=== PATIENT | male | born 1965 | race Caucasian/White ===

== ENCOUNTER 2016-11-20 17:53 | Inpatient (IN) | payer BC ==
[~2016-11-20] VITALS: Ht 177.8 cm; Wt 85.5 kg
[2016-11-20] MEDS ORDERED: SODIUM CHLORIDE 0.9% 1000ML 2,000 ML IV STA (18:13)
[2016-11-20] MEDS ORDERED: ONDANSETRON INJ 2 MG/ML 2 ML VIAL IV STA (18:13)
--- NOTE | 2016-11-20 18:40 | DIAGNOSTIC IMAGING REPORT ---
CHEST ONE VIEW PORTABLE CLINICAL HISTORY: Weakness. Arm numbness. COMPARISON STUDY: No previous studies for comparison. FINDINGS: Patient is mildly rotated. No pneumothorax or pleural effusion is present. Pulmonary vascularity is normal. Cardiomediastinal silhouette is normal. There is no consolidation to suggest pneumonia. IMPRESSION: No acute cardiopulmonary findings. Electronically signed by: Varun Aguilar M.D. 11/20/2016 6:39 PM Dictated Date/Time: 11/20/2016 6:38 PM
[2016-11-20 18:41] LABS: PARTIAL THROMBOPLASTIN RATIO 1.1; PROTHROMBIN TIME (PATIENT) 10.6 SECONDS (9.0-12.0)
[2016-11-20] MEDS ORDERED: COLE1TAB PO (18:47)
[2016-11-20] MEDS ORDERED: IBUP-1050 PO (18:47)
[2016-11-20] MEDS ORDERED: DOXYCYCLINE PO (18:47)
[2016-11-20] MEDS ORDERED: ASPI-391 PO (18:47)
[2016-11-20 19:25] LABS: BASO % 0.2 %; BASO ABS # 0.02 K/uL (0-0.2); COMPLETE YES; EOS % 0.7 %; IG% 0.1 %; LYMPH % 15.5 %; MEAN CELL VOLUME 87.5 fL (80-100); MEAN CORPUSCULAR HEMOGLOBIN 30.3 pg (25-34); MEAN CORPUSCULAR HGB CONC 34.6 g/dl (32-36); MEAN PLATELET VOLUME 8.1 fL (7.4-10.4); MONO % 8.5 %; PLATELET COUNT 249 K/uL (130-400); RED BLOOD COUNT 4.23 M/uL (4.7-6.1)
[2016-11-20 19:33] LABS: URINE APPEARANCE CLEAR (CLEAR); URINE BILIRUBIN NEG (NEG); URINE COLOR YELLOW; URINE NITRITE NEG (NEG); URINE PH 6.5 (4.5-7.5); URINE SPECIFIC GRAVITY 1.022 (1.000-1.030); UROBILINOGEN NEG (NEG)
[2016-11-20 19:38] LABS: MANUAL MICROSCOPIC REQUIRED? NO; REVIEW REQ? NO
[2016-11-20 19:44] LABS: ALT/SGPT 72 U/L (12-78); BLOOD UREA NITROGEN 21 mg/dl (7-18); BUN/CREATININE RATIO 20.9 (10-20); CALCIUM 8.3 mg/dl (8.5-10.1); CARBON DIOXIDE 26 mmol/L (21-32); CHLORIDE 107 mmol/L (98-107); GLUCOSE 91 mg/dl (70-99); POTASSIUM 3.8 mmol/L (3.5-5.1); SODIUM 139 mmol/L (136-145)
[2016-11-20 19:55] LABS: ALKALINE PHOSPHATASE 86 U/L (45-117); AST/SGOT 36 U/L (15-37); THYROID STIMULATING HORMONE 0.632 uIu/ml (0.300-4.500)
[2016-11-20] MEDS ORDERED: OPTIRAY 320 IV PRN (21:30)
--- NOTE | 2016-11-20 21:54 | DIAGNOSTIC IMAGING REPORT ---
CT ANGIOGRAPHY OF THE CHEST, PULMONARY EMBOLUS PROTOCOL CLINICAL HISTORY: Shortness of breath. Elevated d-dimer. COMPARISON STUDY: Chest radiograph performed earlier today. TECHNIQUE: Following IV administration of 74 mL of Optiray-320, helical axial images of the chest were obtained utilizing the pulmonary embolus protocol. Maximal intensity projections and sagittal and coronal reformats were viewed on an independent 3D workstation. IV contrast was administered without complication. A dose lowering technique was utilized adhering to the principles of ALARA. CT DOSE: 362.46 mGy.cm FINDINGS: No pulmonary emboli are identified. There is no evidence of thoracic aortic dissection. The size of the heart is normal. There is no pericardial effusion. No enlarged axillary, mediastinal or hilar lymph nodes are present. Groundglass and linear opacities suggest atelectasis. There is no consolidation to suggest pneumonia. No pneumothorax or pleural effusion is present. Bony thorax is unremarkable. Gallbladder is surgically absent. Multifocal calcifications within the left adrenal gland are noted. This finding is benign. A 1 cm hypodense right hepatic lobe lesion is likely benign. This likely reflects a cyst. IMPRESSION: 1. No pulmonary emboli identified. 2. No acute intrathoracic findings. Electronically signed by: Varun Aguilar M.D. 11/20/2016 9:53 PM Dictated Date/Time: 11/20/2016 9:44 PM
[2016-11-20] MEDS ORDERED: CEFTRIAXONE SOD INJ 1 GM ADDVIAL IV STA (22:03)
[2016-11-20] MEDS ORDERED: POTASSIUM CHLORIDE 10 MEQ TABCR PO STA (23:24)
[2016-11-20] MEDS ORDERED: POTASSIUM CHLORIDE 10 MEQ TABCR ONE (23:33)
--- NOTE | 2016-11-20 23:37 | EMERGENCY ROOM VISIT NOTE ---
History Report prepared by Jhon: Richard Carver Under the Supervision of: Dr. Timbo Mariscal D.O. First contact with patient: 17:54 Stated Complaint: WEAKNESS/ARM NUMBNESS History of Present Illness The patient is a 51 year old male who presents to the Emergency Room with complaints of constant generalized weakness occurring about an hour and a half ago while moving his son in associated with shortness of breath and feeling like he is going to pass out. He additionally states that he has been having shortness of breath that started an hour and a half ago and tingling in his arms. 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 He states that he originally had a 3rd degree heart block, and he as discharged with a first degree AV block. He notes that the symptoms feel exactly the same. He additionally states that he had a temporary pacer, though it was taken out. He additionally states that he has a history of Crohn's and an issue with an ileocecal junction. He states that he is currently on doxycycline. He denies any history of heart disease, hypertension, high cholesterol, and diabetes. Pt denies headache, change in vision, fevers, chest pain, nausea, vomiting, diarrhea, pain with urination, and melena. Source of History: patient Onset: an hour and a half ago Position: other (global) Quality: other (weakness) Timing: constant Associated Symptoms: + SOB Note: Associated symptoms: arm tingling Review of Systems See HPI for pertinent positives & negatives. A total of 10 systems reviewed and were otherwise negative. Past Medical & Surgical Medical Problems: (1) Acute Lyme disease (2) AVB (atrioventricular block) (3) Lyme carditis Social History Marital Status: Housing Status: lives with family Occupation Status: unemployed Current/Historical Medications Scheduled Wytwbql-Pcjyztvrltefv-Eqwqkyrx (Excedrin Extra Strength), 2 TABS PO PRN UD Colestipol Hcl (Colestid), 3 TABS PO QAM [Doxycycline], 1 TABS PO BID Scheduled PRN Ibuprofen (Advil), 400 MG PO Q6 PRN for Pain Allergies Coded Allergies: Amoxicillin (Verified Allergy, Unknown, redness of skin, 11/20/16) Physical Exam Vital Signs Date Time Temp Pulse Resp B/P (MAP) Pulse Ox O2 Delivery O2 Flow Rate FiO2 11/20/16 23:20 75 18 145/91 97 Room Air 11/20/16 21:50 76 20 134/86 99 Room Air 11/20/16 20:26 80 18 128/72 99 Room Air 11/20/16 19:25 78 20 133/84 98 Room Air 11/20/16 18:32 88 146/88 11/20/16 18:27 80 17 128/78 82 136/87 88 146/88 11/20/16 18:09 99 Room Air 11/20/16 18:04 77 11/20/16 17:59 36.4 82 17 138/86 100 Room Air Physical Exam GENERAL: Sitting up in bed, disheveled, no acute distress, non-toxic. EYE EXAM: normal conjunctiva, PERRL and EOM's intact OROPHARYNX: no exudate, no erythema, lips, buccal mucosa, and tongue normal and mucous membranes are moist NECK: supple, no nuchal rigidity, no adenopathy, non-tender LUNGS: Clear to auscultation. Normal chest wall mechanics HEART: no murmurs, S1 normal and S2 normal CHEST: Scant below right subclavian along the right chest wall. ABDOMEN: abdomen soft, non-tender, normo-active bowel sounds, no masses, no rebound or guarding. BACK: Back is symmetrical on inspection and there is no deformity, no midline tenderness, no CVA tenderness. SKIN: no rashes and no bruising UPPER EXTREMITIES: upper extremities are grossly normal. LOWER EXTREMITIES: No pitting edema. NEURO EXAM: Normal sensorium, cranial nerves II-XII intact, normal speech, no weakness of arms, no weakness of legs. No drift. Finger to nose intact. Sensation intact. CHEST ECHO: Faint pericardial effusion. Collapsible IVC with inspiration. Medical Decision & Procedures ER Provider Diagnostic Interpretation: Radiology results as stated below per my review and the radiologist's interpretation: CHEST ONE VIEW PORTABLE CLINICAL HISTORY: Weakness. Arm numbness. COMPARISON STUDY: No previous studies for comparison. FINDINGS: Patient is mildly rotated. No pneumothorax or pleural effusion is present. Pulmonary vascularity is normal. Cardiomediastinal silhouette is normal. There is no consolidation to suggest pneumonia. IMPRESSION: No acute cardiopulmonary findings. Electronically signed by: Varun Aguilar M.D. 11/20/2016 6:39 PM Dictated Date/Time: 11/20/2016 6:[address] ANGIOGRAPHY OF THE CHEST, PULMONARY EMBOLUS PROTOCOL CLINICAL HISTORY: Shortness of breath. Elevated d-dimer. COMPARISON STUDY: Chest radiograph performed earlier today. TECHNIQUE: Following IV administration of 74 mL of Optiray-320, helical axial images of the chest were obtained utilizing the pulmonary embolus protocol. Maximal intensity projections and sagittal and coronal reformats were viewed on an independent 3D workstation. IV contrast was administered without complication. A dose lowering technique was utilized adhering to the principles of ALARA. CT DOSE: 362.46 mGy.cm FINDINGS: No pulmonary emboli are identified. There is no evidence of thoracic aortic dissection. The size of the heart is normal. There is no pericardial effusion. No enlarged axillary, mediastinal or hilar lymph nodes are present. Groundglass and linear opacities suggest atelectasis. There is no consolidation to suggest pneumonia. No pneumothorax or pleural effusion is present. Bony thorax is unremarkable. Gallbladder is surgically absent. Multifocal calcifications within the left adrenal gland are noted. This finding is benign. A 1 cm hypodense right hepatic lobe lesion is likely benign. This likely reflects a cyst. IMPRESSION: 1. No pulmonary emboli identified. 2. No acute intrathoracic findings. Electronically signed by: Varun Aguilar M.D. 11/20/2016 9:53 PM Dictated Date/Time: 11/20/2016 9:44 PM Laboratory Results 11/20/16 19:09 Red Blood Count 4.23, Mean Corpuscular Volume 87.5, Mean Corpuscular Hemoglobin 30.3, Mean Corpuscular Hemoglobin Concent 34.6, Mean Platelet Volume 8.1, Neutrophils (%) (Auto) 75.0, Lymphocytes (%) (Auto) 15.5, Monocytes (%) (Auto) 8.5, Eosinophils (%) (Auto) 0.7, Basophils (%) (Auto) 0.2, Neutrophils # (Auto) 6.30, Lymphocytes # (Auto) 1.30, Monocytes # (Auto) 0.71, Eosinophils # (Auto) 0.06, Basophils # (Auto) 0.02 11/20/16 19:09 Test 11/20/16 18:14 11/20/16 18:18 11/20/16 19:09 11/20/16 19:18 Bedside Glucose 79 mg/dl (70-99) Prothrombin Time 10.6 SECONDS (9.0-12.0) Prothromb Time International Ratio 1.0 (0.9-1.1) Activated Partial Thromboplast Time 27.8 SECONDS (21.0-31.0) Partial Thromboplastin Ratio 1.1 White Blood Count 8.40 K/uL (4.8-10.8) Red Blood Count 4.23 M/uL (4.7-6.1) Hemoglobin 12.8 g/dL (14.0-18.0) Hematocrit 37.0 % (42-52) Mean Corpuscular Volume 87.5 fL (80-100) Mean Corpuscular Hemoglobin 30.3 pg (25-34) Mean Corpuscular Hemoglobin Concent 34.6 g/dl (32-36) Platelet Count 249 K/uL (130-400) Mean Platelet Volume 8.1 fL (7.4-10.4) Neutrophils (%) (Auto) 75.0 % Lymphocytes (%) (Auto) 15.5 % Monocytes (%) (Auto) 8.5 % Eosinophils (%) (Auto) 0.7 % Basophils (%) (Auto) 0.2 % Neutrophils # (Auto) 6.30 K/uL (1.4-6.5) Lymphocytes # (Auto) 1.30 K/uL (1.2-3.4) Monocytes # (Auto) 0.71 K/uL (0.11-0.59) Eosinophils # (Auto) 0.06 K/uL (0-0.5) Basophils # (Auto) 0.02 K/uL (0-0.2) RDW Standard Deviation 42.1 fL (36.4-46.3) RDW Coefficient of Variation 13.1 % (11.5-14.5) Immature Granulocyte % (Auto) 0.1 % Immature Granulocyte # (Auto) 0.01 K/uL (0.00-0.02) Anion Gap 6.0 mmol/L (3-11) Est Creatinine Clear Calc Drug Dose 90.2 ml/min Estimated GFR () 100.6 Estimated GFR (Non- 86.8 BUN/Creatinine Ratio 20.9 (10-20) Calcium Level 8.3 mg/dl (8.5-10.1) Total Bilirubin 0.3 mg/dl (0.2-1) Direct Bilirubin 0.1 mg/dl (0-0.2) Aspartate Amino Transf (AST/SGOT) 36 U/L (15-37) Alanine Aminotransferase (ALT/SGPT) 72 U/L (12-78) Alkaline Phosphatase 86 U/L (45-117) Troponin I < 0.015 ng/ml (0-0.045) Total Protein 6.7 gm/dl (6.4-8.2) Albumin 3.3 gm/dl (3.4-5.0) Thyroid Stimulating Hormone (TSH) 0.632 uIu/ml (0.300-4.500) D-Dimer 2090 ug/L FEU (0-500) Test 11/20/16 19:20 Urine Color YELLOW Urine Appearance CLEAR (CLEAR) Urine pH 6.5 (4.5-7.5) Urine Specific Milligan 1.022 (1.000-1.030) Urine Protein NEG (NEG) Urine Glucose (UA) NEG (NEG) Urine Ketones NEG (NEG) Urine Occult Blood NEG (NEG) Urine Nitrite NEG (NEG) Urine Bilirubin NEG (NEG) Urine Urobilinogen NEG (NEG) Urine Leukocyte Esterase NEG (NEG) Laboratory results per my review. Medications Administered Medications (Trade) Dose Ordered Sig/Evelin Route Start Time Stop Time Status Last Admin Dose Admin Sodium Chloride 2,000 ml @ 999 mls/hr Q2H1M STAT IV 11/20/16 18:13 11/20/16 20:13 DC 11/20/16 18:30 999 MLS/HR Ceftriaxone Sodium (Rocephin Inj) 2 gm NOW STAT IV 11/20/16 22:03 11/20/16 22:06 DC 11/20/16 22:28 2 GM ECG Indication: weakness Rate (beats per minute): 75 Findings: 1st degree AV block, other (Normal axis, normal intervals) ED Course ED COURSE: Vital signs were reviewed and showed tachycardia. The patients medical record was reviewed The above diagnostic studies were performed and reviewed. ED treatments and interventions as stated above. 4: The patient was evaluated in room C4. A complete history and physical examination was performed. 1812: Sodium Chloride 2000 ml @ 999 mls/hr IV IV 2045: I reassessed the patient, and he is still feeling short of breath. 2202: Rocephin Inj 2gm IV 2203: I discussed the patient's case with Dr. Saldivar, Cardiology, and he recommends that the patient be evaluated by a hospitalist. 2213: I reviewed the patient's case with Dr. Martinez. He will evaluate the patient for further management. 0: Upon reevaluation, the patient is feeling well.I discussed my findings with the patient and he understands and agrees with the treatment plan. Based on the patients age, coexisting illnesses, exam and lab findings the decision to treat as an inpatient was made. The patient remained stable while under my care. The patient will be evaluated for further management. Medical Decision Differential Diagnosis includes but is not limited to dehydration, stroke, anemia, hypoglycemia, hyponatremia, hypernatremia, urinary tract infection, pneumonia, bronchitis, sepsis, gastroenteritis, additional abdominal pathology, metabolic abnormalities and infections. Patient is a 51-year-old male who presents the ER who was just discharged from the hospital yesterday with Lyme endocarditis following complete heart block and temporary placer placement and removal. He notes that now he only has a first-degree heart block. Upon presentation he is having shortness of breath along with diffuse weakness and feeling like he is going to pass out. This feels exactly like his previous symptoms which brought him initially into the hospital with Lyme carditis. Bedside ultrasound/echo shows pericardial effusion which is minor. Chest x-ray was unremarkable. CBC along with BMP, LFTs, troponin and TSH was unremarkable. UA was negative. D-dimer was elevated and consequently CT PE was performed which was negative. EKG shows a first heart block without ischemia. Discussed case with cardiology and they agreed with observation. Updated family and patient was admitted to internal medicine. Medication Reconcilliation Current Medication List: was personally reviewed by me Blood Pressure Screening Patient's blood pressure: Elevated blood pressure Blood pressure disposition: Elevated BP felt to be situational Consults Time Called: 2204 Consulting Physician: Dr. Martinez Returned Call: [phone] I reviewed the patient's case with Dr. Martinez. He will evaluate the patient for further management. Additional Consults: Time Called: 2045 Consulted Physician: Dr. Saldivar, Cardiology Returned Call: [phone] Additional Comments: I discussed the patient's case with Dr. Saldivar, Cardiology, and he recommends that the patient be evaluated by a hospitalist. Impression Primary Impression: Lyme carditis Additional Impressions: AVB (atrioventricular block) Weakness Dizziness Scribe Attestation The scribe's documentation has been prepared under my direction and personally reviewed by me in its entirety. I confirm that the note above accurately reflects all work, treatment, procedures, and medical decision making performed by me. Departure Information Dispostion Being Evaluated By Hospitalist Problem Qualifiers
[2016-11-20] MEDS ORDERED: ACETAMINOPHEN 325 MG TAB PO PRN (23:45)
[2016-11-20] MEDS ORDERED: NSS + 20MEQ KCL 1000ML 1,000 ML IV ONE (23:45)
[2016-11-20] MEDS ORDERED: LORAZEPAM 2 MG/ML 1 ML VIAL IV PRN (23:45)
[2016-11-20] MEDS ORDERED: TRAMADOL HCL 50 MG TAB PO PRN (23:45)
[2016-11-20] MEDS ORDERED: MoRPHine SULFATE 4 MG/ML 1 ML CARP\\VIAL IV PRN (23:45)
[2016-11-20] MEDS ORDERED: KETOROLAC TROMETHAMINE 30 MG/ML VIAL IV PRN (23:45)
[2016-11-20] MEDS ORDERED: PROMETHAZINE HCL INJ 12.5 MG in SODIUM CHLORIDE 0.9% 50ML 50 ML IV PRN (23:45)
[2016-11-21] VITALS (7 sets, daily range): BP systolic 119–156; BP diastolic 77–89; PULSE 68–80; TEMP 36.6–36.8; O2SAT 96–98; Ht 177.8 cm; Wt 85.5 kg
--- NOTE | 2016-11-21 04:47 | HISTORY & PHYSICAL EXAMINATION ---
DATE OF ADMISSION: 11/20/2016 PRIMARY CARE PHYSICIAN: Dr. Maty Perry from [place], [place] (although he has not met her) CHIEF COMPLAINT: Shortness of breath. HISTORY OF PRESENT ILLNESS: History obtained from patient and ER provider. Medical history significant for recent diagnosis of Lyme carditis ongoing doxycycline treatment. Recent confinement at [place], [place] last week for Lyme carditis. Prior to confinement patient had 2 days history of shortness of breath, generalized weakness weakness, subsequently had 2 syncopal events. Complete heart block noted at [facility]. Temporary pacemaker placed. Abnormal Lyme screen noted. No recollection of recent tick bites. Patient was started IV Ceftriaxone for possible Lyme carditis subsequently discharged on Doxycycline course about 2 days ago. Patient compliant with medications. Patient and in town to bring son to college. He noted shortness of breath, generalized weakness similar to carditis sx from last week. No chest pain. Transient bilateral upper extremity numbness and tingling. Patient denies depression. No abdominal pain/bleeding noted. At the Emergency Room, patient given Ceftriaxone. MEDICAL HISTORY: As above. SURGICAL HISTORY: Bowel surgery for suspected inflammatory bowel disease which was disproved as per patient, kidney stone procedure, appendectomy, kidney cyst drainage HOME MEDICATIONS: Include Excedrin, Cholestat, doxycycline, Advil. ALLERGIES: No known drug allergies. FAMILY HISTORY: Hypertension. PERSONAL AND SOCIAL HISTORY: Nonsmoker, no chronic intake of alcoholic beverages. 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 REVIEW OF SYSTEMS: As per HPI, all other ROS negative. PHYSICAL EXAMINATION: VITAL SIGNS: Blood pressure was noted to be 138/80, pulse rate 86, RR 17, temperature 36.4, sats 100% in room air. GENERAL: Slightly anxious, no respiratory distress. SKIN: pallor. HEENT: Partial alopecia, pale palpebral conjunctivae, dry buccal mucosa NECK: No JVD. Supple. CHEST: Clear to auscultation. HEART: Regular rate and rhythm. ABDOMEN: Soft. NT EXTREMITIES: No edema. No tenderness NEUROLOGIC: No gross focality. LABORATORY DATA: Hemoglobin 12.8, hematocrit 37, white cells 8.1, platelets 249. Sodium 139, potassium 3.8, chloride 107, CO2 21, BUN 21, creatinine 1.7, glucose was noted to be 91. Troponin normal. CT chest showed no pulmonary embolism. EKG as per my interpretation, rate 75, normal sinus rhythm, first degree AV block, incomplete right bundle branch block, no ischemia. ASSESSMENT: 1. Lyme carditis hx transient 3AVB as per patient Recent confinement at [facility]. Initially treated with IV Ceftriaxone at the [facility] and subsequently discharged on Doxycycline. Recurrence of symptoms leading to recent confinement. First degree AV block noted on EKG at the ER. 2. Normocytic anemia, unknown baseline. Patient unaware of previous diagnosis. PLAN: PCU IV Ceftriaxone for Lyme carditis (? failed Doxycycline Rx). 2D echo RE SOB Cardio consult, RE Lyme carditis. ER provider already in touch w/ Dr. Saldivar. ID consult. Lyme carditis (? Failed Doxycycline Rx). Retrieve records of recent confinement from [facility]. Anemia workup DVT prophylaxis, SCDs, RE anemia until occult GI bleed ruled out Full code. MTDD
[2016-11-21 07:54] LABS: BASO % 0.7 %; BASO ABS # 0.04 K/uL (0-0.2); COMPLETE YES; EOS % 2.4 %; HEMATOCRIT 40.5 % (42-52); IG% 0.2 %; LYMPH % 28.6 %; LYMPH ABS # 1.64 K/uL (1.2-3.4); MEAN CELL VOLUME 86.5 fL (80-100); MEAN CORPUSCULAR HEMOGLOBIN 29.5 pg (25-34); MEAN CORPUSCULAR HGB CONC 34.1 g/dl (32-36); MEAN PLATELET VOLUME 8.1 fL (7.4-10.4); MONO % 11.1 %; PLATELET COUNT 267 K/uL (130-400); RED BLOOD COUNT 4.68 M/uL (4.7-6.1); WHITE BLOOD COUNT 5.74 K/uL (4.8-10.8)
[2016-11-21 08:29] LABS: BLOOD UREA NITROGEN 15 mg/dl (7-18); BUN/CREATININE RATIO 15.7 (10-20); CALCIUM 8.9 mg/dl (8.5-10.1); CARBON DIOXIDE 26 mmol/L (21-32); CHLORIDE 108 mmol/L (98-107); CREATININE 0.97 mg/dl (0.60-1.40); GLUCOSE 83 mg/dl (70-99); POTASSIUM 4.1 mmol/L (3.5-5.1); SODIUM 139 mmol/L (136-145)
[2016-11-21 08:36] LABS: TOTAL IRON BINDING CAPACITY 371 mcg/dl (250-450)
[2016-11-21] MEDS ORDERED: COLESTIPOL HCL 1 GM TAB PO SCH (10:00)
--- NOTE | 2016-11-21 10:14 | Progress Note ---
Medicine Progress Note Date & Time of Visit: Nov 21, 2016 at 09:58. Subjective Pt was seen and examined Lying in bed comfortable with no distress with at bedside Pt said that he feels fine He said that he has a follow up appointment with cardiology tomorrow he denies any chest pain, palpitation, dizziness and SOB Objective Last 8 Hrs Date Time Temp Pulse Resp B/P (MAP) Pulse Ox O2 Delivery O2 Flow Rate FiO2 11/21/16 08:01 36.6 71 18 128/87 (101) 96 Room Air 11/21/16 08:00 96 Room Air 11/21/16 04:31 36.8 80 18 123/78 (93) 96 Room Air 11/21/16 04:00 Room Air Physical Exam: General- No acute distress Head- atraumatic Eyes- PERRL, EOMI ENT- oropharynx clear Neck- supple, no JVD Lungs- clear to auscultation Heart- regular rhythm; no murmur Abdomen- normal bowel sounds, soft Extremities- no calf tenderness Neuro- alert, oriented x 3; PERRL, EOMI; no facial palsy Skin- warm & dry Laboratory Results: Last 24 Hours Test 11/20/16 18:14 11/20/16 18:18 11/20/16 19:09 11/20/16 19:18 Bedside Glucose 79 mg/dl Prothrombin Time 10.6 SECONDS Prothromb Time International Ratio 1.0 Activated Partial Thromboplast Time 27.8 SECONDS Partial Thromboplastin Ratio 1.1 White Blood Count 8.40 K/uL Red Blood Count 4.23 M/uL Hemoglobin 12.8 g/dL Hematocrit 37.0 % Mean Corpuscular Volume 87.5 fL Mean Corpuscular Hemoglobin 30.3 pg Mean Corpuscular Hemoglobin Concent 34.6 g/dl Platelet Count 249 K/uL Mean Platelet Volume 8.1 fL Neutrophils (%) (Auto) 75.0 % Lymphocytes (%) (Auto) 15.5 % Monocytes (%) (Auto) 8.5 % Eosinophils (%) (Auto) 0.7 % Basophils (%) (Auto) 0.2 % Neutrophils # (Auto) 6.30 K/uL Lymphocytes # (Auto) 1.30 K/uL Monocytes # (Auto) 0.71 K/uL Eosinophils # (Auto) 0.06 K/uL Basophils # (Auto) 0.02 K/uL RDW Standard Deviation 42.1 fL RDW Coefficient of Variation 13.1 % Immature Granulocyte % (Auto) 0.1 % Immature Granulocyte # (Auto) 0.01 K/uL Sodium Level 139 mmol/L Potassium Level 3.8 mmol/L Chloride Level 107 mmol/L Carbon Dioxide Level 26 mmol/L Anion Gap 6.0 mmol/L Blood Urea Nitrogen 21 mg/dl Creatinine 1.00 mg/dl Est Creatinine Clear Calc Drug Dose 90.2 ml/min Estimated GFR () 100.6 Estimated GFR (Non- 86.8 BUN/Creatinine Ratio 20.9 Random Glucose 91 mg/dl Calcium Level 8.3 mg/dl Magnesium Level 2.0 mg/dl Total Bilirubin 0.3 mg/dl Direct Bilirubin 0.1 mg/dl Aspartate Amino Transf (AST/SGOT) 36 U/L Alanine Aminotransferase (ALT/SGPT) 72 U/L Alkaline Phosphatase 86 U/L Troponin I < 0.015 ng/ml Total Protein 6.7 gm/dl Albumin 3.3 gm/dl Thyroid Stimulating Hormone (TSH) 0.632 uIu/ml D-Dimer 2090 ug/L FEU Test 11/20/16 19:20 11/21/16 07:20 Urine Color YELLOW Urine Appearance CLEAR Urine pH 6.5 Urine Specific [place] 1.022 Urine Protein NEG Urine Glucose (UA) NEG Urine Ketones NEG Urine Occult Blood NEG Urine Nitrite NEG Urine Bilirubin NEG Urine Urobilinogen NEG Urine Leukocyte Esterase NEG White Blood Count 5.74 K/uL Red Blood Count 4.68 M/uL Hemoglobin 13.8 g/dL Hematocrit 40.5 % Mean Corpuscular Volume 86.5 fL Mean Corpuscular Hemoglobin 29.5 pg Mean Corpuscular Hemoglobin Concent 34.1 g/dl Platelet Count 267 K/uL Mean Platelet Volume 8.1 fL Neutrophils (%) (Auto) 57.0 % Lymphocytes (%) (Auto) 28.6 % Monocytes (%) (Auto) 11.1 % Eosinophils (%) (Auto) 2.4 % Basophils (%) (Auto) 0.7 % Neutrophils # (Auto) 3.27 K/uL Lymphocytes # (Auto) 1.64 K/uL Monocytes # (Auto) 0.64 K/uL Eosinophils # (Auto) 0.14 K/uL Basophils # (Auto) 0.04 K/uL RDW Standard Deviation 42.6 fL RDW Coefficient of Variation 13.4 % Immature Granulocyte % (Auto) 0.2 % Immature Granulocyte # (Auto) 0.01 K/uL Erythrocyte Sedimentation Rate 16 mm/hr Absolute Reticulocyte Count 0.06 10^6/uL Percent Reticulocyte Count 1.3 % Sodium Level 139 mmol/L Potassium Level 4.1 mmol/L Chloride Level 108 mmol/L Carbon Dioxide Level 26 mmol/L Anion Gap 5.0 mmol/L Blood Urea Nitrogen 15 mg/dl Creatinine 0.97 mg/dl Est Creatinine Clear Calc Drug Dose 93.0 ml/min Estimated GFR () 104.3 Estimated GFR (Non- 90.0 BUN/Creatinine Ratio 15.7 Random Glucose 83 mg/dl Calcium Level 8.9 mg/dl Iron Level 130 mcg/dl Total Iron Binding Capacity 371 mcg/dl Transferrin 300 mg/dl Transferrin % Saturation 31 % Ferritin 50.0 ng/ml Troponin I < 0.015 ng/ml Vitamin B12 Level 333 pg/mL Folate 9.19 ng/mL Assessment & Plan SOB associated with weakness Pt said symptoms are similar to his 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 Janna BRIAN from cardiac standpoint to discharge home as per cardiology ECHO showed * Ejection Fraction = 65-70%. * The left ventricular wall motion is normal. * Pulse wave TDI of the anterior and posterior mitral annulas demonstrates normal LV relaxation * There is no pericardial effusion. 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 as per patient Initially treated with IV Ceftriaxone at the [facility] Rocephin 2g given in the ER On rocephin daily Will discharge back on doxycycline ID consulted recommended to continue doxycycline Normocytic anemia unknown baseline because he follows with PCP in [place] Hbg 13.8 DVT px on SCDs CODE STATUS FULL CODE Disposition Possible discharge home today if stable from cardio standpoint Follow up appointment tomorrow with his cardiology in [place] Follow up with PCP in [place] Consultants: Cardio ID Current Inpatient Medications: Current Inpatient Medications Medications (Trade) Dose Ordered Sig/Evelin Route Start Time Stop Time Status Last Admin Dose Admin Ioversol (Optiray 320) 100 ml UD PRN IV 11/20/16 21:30 11/24/16 21:29 Potassium Chloride/Sodium Chloride 1,000 ml @ 75 mls/hr [id number] ONCE IV 11/20/16 23:45 11/21/16 13:04 11/21/16 00:25 75 MLS/HR Acetaminophen (Tylenol Tab) 650 mg Q4H PRN PO 11/20/16 23:45 12/20/16 23:44 Ketorolac Tromethamine (Toradol Inj) 30 mg Q6H PRN IV 11/20/16 23:45 11/25/16 23:44 Lorazepam (Ativan Inj) 0.5 mg Q4H PRN IV 11/20/16 23:45 12/20/16 23:44 Promethazine HCl 12.5 mg/Sodium Chloride 50.5 ml @ 204 mls/hr Q6H PRN IV 11/20/16 23:45 12/20/16 23:44 Morphine Sulfate (MoRPHine SULFATE INJ) 4 mg Q3H PRN IV 11/20/16 23:45 12/04/16 23:44 Tramadol HCl (Ultram Tab) 25 mg Q6H PRN PO 11/20/16 23:45 12/20/16 23:44 Colestipol HCl (Colestid Tab) 3 gm DAILY@1000 PO 11/21/16 10:00 12/21/16 09:59 11/21/16 08:04 3 GM Ceftriaxone Sodium 2 gm/ Dextrose 50 ml @ 100 mls/hr Q24H IV 11/21/16 23:00 11/30/16 22:59
--- NOTE | 2016-11-21 11:31 | CARDIOLOGY CONSULTATION ---
DATE OF CONSULTATION: 11/21/2016 REFERRING PHYSICIAN: Boris Wylie MD REASON FOR CONSULTATION: Lyme carditis, lightheadedness. HISTORY OF PRESENT ILLNESS: Mr. Peres is a 51-year-old gentleman recently hospitalized in [place], [place] for acute Lyme carditis. According to the patient, third-degree heart block was documented and temporary transvenous pacer was inserted for several days. He was treated with intravenous ceftriaxone and his heart block subsequently resolved. He came to [employer] to move his child in to the apartments. He noted generalized weakness and fatigue similar to his Lyme presentation nearly 1 week ago. Denies syncope or near syncope. He came to the Emergency Department for further evaluation. His ECG demonstrates sinus rhythm with a first-degree AV block. Due concerns for recurrent Lyme carditis, he was treated with 1 dose of intravenous ceftriaxone. He has remained in sinus rhythm overnight. ECG confirms first-degree AV block, no recurrent third-degree AV block noted. The patient denies chest pain or unusual shortness of breath. He had decrease in functional capacity and exercise tolerance. No orthopnea, PND, or palpitations. He offers no other complaints at this time. REVIEW OF SYSTEMS: The pertinent noted above, a comprehensive 10-system review is otherwise negative. PAST MEDICAL HISTORY: Possible Crohn's disease. PAST SURGICAL HISTORY: 1. Bowel surgery for suspected Crohn's disease. 2. Kidney stone procedure. 3. Appendectomy. 4. Kidney cyst drainage. OUTPATIENT MEDICATIONS: 1. Doxycycline 200 mg twice daily. 2. Colestipol twice daily. 3. Advil and Excedrin as needed. ALLERGIES: No known drug allergies. FAMILY HISTORY: Negative for premature CAD or sudden cardiac . SOCIAL HISTORY: He is a nonsmoker. Denies alcohol intake. 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 ECG, sinus rhythm, first-degree AV block, otherwise normal. Telemetry: Sinus rhythm. LABORATORY DATA: ESR is 16. White blood cell count 5.74, hemoglobin is 13.8, and platelet count is 267. Sodium 139, potassium 4.1, chloride 108, CO2 is 26, BUN is 17, creatinine 0.97. Troponins are undetectable. TSH 0.632. INR is 1.0. D-dimer is 2090. IMAGING: CTA of the chest was performed demonstrating no pulmonary emboli, no acute intrathoracic findings. No pericardial effusion. PHYSICAL EXAMINATION: VITAL SIGNS: Temperature is 36.6 degrees centigrade, pulse 71 beats per minute and regular, respiratory rate is 18 breaths per minute, blood pressure 128/87, and SaO2 96% on room air. GENERAL: NAD, awake, alert and oriented x3. HEENT: Mucous membranes are moist. No scleral icterus. Conjunctivae pink. NECK: Supple without JVD or HJR. No carotid bruit. HEART: Regular with a normal S1 and S2. There is no murmur, rub, or gallop. LUNGS: Clear without rales, rhonchi or wheeze. ABDOMEN: Soft, nontender. No rebound or guarding. Normal bowel sounds. EXTREMITIES: Warm and dry. There is no clubbing, cyanosis, or edema. NEUROLOGIC: Demonstrates no focal deficit. FINAL IMPRESSION: 1. A 51-year-old male presents with fatigue and weakness. Recently diagnosed with Lyme carditis, status post transvenous pacemaker insertion and removal. He was treated with 1 dose of intravenous Rocephin in the ER. There has been no recurrent third-degree heart block overnight. 2. Possible history of inflammatory bowel disease. 3. Normocytic anemia. PLAN AND RECOMMENDATIONS: Telemetry monitoring unremarkable overnight. The patient may resume doxycycline as previously ordered. Await input from infectious disease specialist at this time. His resting 2D transthoracic echo is pending. If there are no significant findings, the patient will likely be discharged to home today. He has a followup appointment scheduled with cardiology tomorrow. Both he and his are agreeable to the current plan. All questions were answered to their satisfaction. Thank you for allowing me to take part in the care of your patient.
--- NOTE | 2016-11-21 13:11 | ECHOCARDIOGRAM REPORT ---
*NOTICE TO RECEIVING DEMOCRAT AGENCY This information is strictly Confidential and protected under [place] law. [place] law prohibits you from making any further disclosure of this information unless further disclosure is expressly permitted by the written consent of the person to whom it pertains or is authorized by law. A general authorization for the release of medical or other information is not sufficient for this purpose. Hospital accepts no responsibility if the information is made available to any other person, INCLUDING THE PATIENT. Interpretation Summary * Name: HOUSTON MAURICIO Study Date: 11/21/2016 06:58 AM BP: 123/78 mmHg * Patient Location: [facility]\S\N282\S\2 HR: 80 * : 1965 (M/d/yyyy) Gender: Male Height: 70 in * Age: 51 yrs Ethnicity: [place] Weight: 188 lb * Ordering Physician: Levi Martinez * Performed By: Kendy Bearden * * Reason For Study: SOB, HX OF LYME CARDITIS * BSA: 2.0 m2 * The study was technically adequate. * There is no comparison study available. * -- Conclusions -- * Ejection Fraction = 65-70%. * The left ventricular wall motion is normal. * Pulse wave TDI of the anterior and posterior mitral annulas demonstrates normal LV relaxation * There is no pericardial effusion. Procedure Details * A complete two-dimensional transthoracic echocardiogram was performed (2D, M-mode, Doppler and color flow Doppler). Left Ventricle * The left ventricle is normal in size. * There is normal left ventricular wall thickness. * Ejection Fraction = 65-70%. * Left ventricular systolic function is normal. * The left ventricular wall motion is normal. Right Ventricle * The right ventricle is normal size. * The right ventricular systolic function is normal as assessed by tricuspid annular plane systolic excursion (TAPSE) (normal >1.5 cm). Atria * The left atrial size is normal. * Right atrial size is normal. * There is no evidence of atrial septal defect, but resolution does not allow assessment for a patent foramen ovale. Mitral Valve * The chordae are redundant with focal calcification. * There is no mitral valve stenosis. * Significant mitral regurgitation is absent. Tricuspid Valve * The tricuspid valve is normal. * There is no tricuspid stenosis. * Significant tricuspid regurgitation is absent. Aortic Valve * The aortic valve is trileaflet. * Aortic stenosis is absent. * There is no significant aortic regurgitation. Pulmonic Valve * The pulmonary valve is not well seen, but the Doppler examination is normal without significant regurgitation or stenosis. Great Vessels * The aortic root is normal size. Pericardium/Pleural * There is no pericardial effusion. Great Vessels * Normal inferior vena cava diameter and respiratory variation suggests normal central venous pressure. Left Ventricular Diastolic Function * Pulse wave TDI of the anterior and posterior mitral annulas demonstrates normal LV relaxation MMode 2D Measurements and Calculations IVSd 1.2 cm IVSs 1.8 cm LVIDd 4.1 cm LVIDs 2.5 cm LVPWd 1.2 cm LVPWs 2.4 cm IVS/LVPW 1.0 FS 37.5 % EDV(Teich) 73.2 ml ESV(Teich) 23.4 ml EF(Teich) 68.0 % EDV(cubed) 67.7 ml ESV(cubed) 16.6 ml EF(cubed) 75.5 % % IVS thick 41.9 % % LVPW thick 95.8 % LV mass(C)d 176.8 grams LV mass(C)dI 87.0 grams/m\S\2 LV mass(C)s 237.7 grams LV mass(C)sI 116.9 grams/m\S\2 SV(Teich) 49.7 ml SI(Teich) 24.5 ml/m\S\2 SV(cubed) 51.1 ml SI(cubed) 25.1 ml/m\S\2 ACS 1.4 cm LA dimension 3.4 cm asc Aorta Diam 3.0 cm LVOT diam 1.8 cm LVOT area 2.6 cm\S\2 LVAd ap4 30.0 cm\S\2 LVLd ap4 8.3 cm EDV(MOD-sp4) 92.1 ml EDV(sp4-el) 92.5 ml LVAs ap4 14.4 cm\S\2 LVLs ap4 6.5 cm ESV(MOD-sp4) 30.4 ml ESV(sp4-el) 27.0 ml EF(MOD-sp4) 67.0 % EF(sp4-el) 70.8 % LVAd ap2 36.7 cm\S\2 LVLd ap2 8.7 cm EDV(MOD-sp2) 126.3 ml EDV(sp2-el) 131.6 ml LVAs ap2 19.3 cm\S\2 LVLs ap2 7.1 cm ESV(MOD-sp2) 43.4 ml ESV(sp2-el) 44.6 ml EF(MOD-sp2) 65.7 % EF(sp2-el) 66.1 % LVLd %diff 4.5 % EDV(MOD-bp) 110.5 ml LVLs %diff 8.3 % ESV(MOD-bp) 37.0 ml EF(MOD-bp) 66.5 % SV(MOD-sp4) 61.7 ml SI(MOD-sp4) 30.4 ml/m\S\2 SV(MOD-sp2) 83.0 ml SI(MOD-sp2) 40.8 ml/m\S\2 SV(MOD-bp) 73.5 ml SI(MOD-bp) 36.2 ml/m\S\2 SV(sp4-el) 65.4 ml SI(sp4-el) 32.2 ml/m\S\2 SV(sp2-el) 87.0 ml SI(sp2-el) 42.8 ml/m\S\2 Doppler Measurements and Calculations MV E max jaye 86.8 cm/sec MV A max jaye 79.3 cm/sec MV E/A 1.1 MV dec time 0.20 sec Ao V2 max 128.3 cm/sec Ao max PG 6.6 mmHg Ao max PG (full) 2.2 mmHg DARYA(V,A) 2.2 cm\S\2 DARYA(V,D) 2.2 cm\S\2 LV V1 max PG 4.4 mmHg LV V1 max 104.5 cm/sec PA V2 max 76.0 cm/sec PA max PG 2.3 mmHg
--- NOTE | 2016-11-21 13:21 | Medical Consult ---
Consultation Date of Consultation: Nov 21, 2016. Attending Physician: Boris Wylie M.D. Reason for Consultation: Lyme carditis, ? failed doxycycline History of Present Illness 51-year-old male in prior good health was hospitalized last week after several syncopal episodes with weakness and orthostasis. 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 Patient was initially treated with IV ceftriaxone with improvement in heart block, and pacemaker was able to be removed and patient discharged on doxycycline. He took his 1st day therapy, then travel to this area to help his son moved and pathology. He became excessively weak and fatigued with lightheadedness, and came to the emergency department where he was readmitted and restarted on ceftriaxone. This morning, he feels much better in symptoms have resolved. He remains afebrile and hemodynamically stable. No evidence of recurrent heart block. Past Medical/Surgical History Medical Problems: (1) Dizziness Status: Acute (2) Weakness Status: Acute Medical Problems: (1) Acute Lyme disease (2) AVB (atrioventricular block) (3) Lyme carditis Family History Noncontributory Social History Smoking Status: Never Smoker Marital Status: Housing Status: lives with family Occupation Status: unemployed Allergies Coded Allergies: Amoxicillin (Verified Allergy, Unknown, redness of skin, 11/20/16) Current Inpatient Medications Current Inpatient Medications Medications (Trade) Dose Ordered Sig/Evelin Route Start Time Stop Time Status Last Admin Dose Admin Ioversol (Optiray 320) 100 ml UD PRN IV 11/20/16 21:30 11/24/16 21:29 Acetaminophen (Tylenol Tab) 650 mg Q4H PRN PO 11/20/16 23:45 12/20/16 23:44 Ketorolac Tromethamine (Toradol Inj) 30 mg Q6H PRN IV 11/20/16 23:45 11/25/16 23:44 Lorazepam (Ativan Inj) 0.5 mg Q4H PRN IV 11/20/16 23:45 12/20/16 23:44 Promethazine HCl 12.5 mg/Sodium Chloride 50.5 ml @ 204 mls/hr Q6H PRN IV 11/20/16 23:45 12/20/16 23:44 Morphine Sulfate (MoRPHine SULFATE INJ) 4 mg Q3H PRN IV 11/20/16 23:45 12/04/16 23:44 Tramadol HCl (Ultram Tab) 25 mg Q6H PRN PO 11/20/16 23:45 12/20/16 23:44 Colestipol HCl (Colestid Tab) 3 gm DAILY@1000 PO 11/21/16 10:00 12/21/16 09:59 11/21/16 08:04 3 GM Ceftriaxone Sodium 2 gm/ Dextrose 50 ml @ 100 mls/hr Q24H IV 11/21/16 23:00 11/30/16 22:59 Review of Systems All systems were reviewed and are negative except as per HPI Physical Exam Date Time Temp Pulse Resp B/P (MAP) Pulse Ox O2 Delivery O2 Flow Rate FiO2 11/21/16 12:19 36.6 69 16 119/77 (91) 97 Room Air 11/21/16 08:01 36.6 71 18 128/87 (101) 96 Room Air 11/21/16 08:00 96 Room Air 11/21/16 04:31 36.8 80 18 123/78 (93) 96 Room Air 11/21/16 04:00 Room Air 11/21/16 00:00 36.6 68 20 156/89 98 Room Air 11/20/16 23:20 75 18 145/91 97 Room Air 11/20/16 21:50 76 20 134/86 99 Room Air 11/20/16 20:26 80 18 128/72 99 Room Air 11/20/16 19:25 78 20 133/84 98 Room Air 11/20/16 18:32 88 146/88 11/20/16 18:27 80 17 128/78 82 136/87 88 146/88 11/20/16 18:09 99 Room Air 11/20/16 18:04 77 11/20/16 17:59 36.4 82 17 138/86 100 Room Air General Appearance: WD/WN, no apparent distress Head: normocephalic, atraumatic Eyes: normal inspection, EOMI, sclerae normal ENT: normal ENT inspection, hearing grossly normal, pharynx normal Neck: supple, no adenopathy, thyroid normal, trachea midline Respiratory/Chest: chest non-tender, lungs clear, normal breath sounds, no respiratory distress Cardiovascular: regular rate, rhythm, no gallop, no murmur Abdomen/GI: normal bowel sounds, non tender, soft, no organomegaly Back: normal inspection, no CVA tenderness Extremities/Musculoskelatal: normal inspection, no calf tenderness Neurologic/Psych: alert, oriented x 3 Skin: normal color, warm/dry, no rash Lymphatic: no adenopathy Laboratory Results Last 24 Hours Test 11/20/16 18:14 11/20/16 18:18 11/20/16 19:09 11/20/16 19:18 Bedside Glucose 79 mg/dl Prothrombin Time 10.6 SECONDS Prothromb Time International Ratio 1.0 Activated Partial Thromboplast Time 27.8 SECONDS Partial Thromboplastin Ratio 1.1 White Blood Count 8.40 K/uL Red Blood Count 4.23 M/uL Hemoglobin 12.8 g/dL Hematocrit 37.0 % Mean Corpuscular Volume 87.5 fL Mean Corpuscular Hemoglobin 30.3 pg Mean Corpuscular Hemoglobin Concent 34.6 g/dl Platelet Count 249 K/uL Mean Platelet Volume 8.1 fL Neutrophils (%) (Auto) 75.0 % Lymphocytes (%) (Auto) 15.5 % Monocytes (%) (Auto) 8.5 % Eosinophils (%) (Auto) 0.7 % Basophils (%) (Auto) 0.2 % Neutrophils # (Auto) 6.30 K/uL Lymphocytes # (Auto) 1.30 K/uL Monocytes # (Auto) 0.71 K/uL Eosinophils # (Auto) 0.06 K/uL Basophils # (Auto) 0.02 K/uL RDW Standard Deviation 42.1 fL RDW Coefficient of Variation 13.1 % Immature Granulocyte % (Auto) 0.1 % Immature Granulocyte # (Auto) 0.01 K/uL Sodium Level 139 mmol/L Potassium Level 3.8 mmol/L Chloride Level 107 mmol/L Carbon Dioxide Level 26 mmol/L Anion Gap 6.0 mmol/L Blood Urea Nitrogen 21 mg/dl Creatinine 1.00 mg/dl Est Creatinine Clear Calc Drug Dose 90.2 ml/min Estimated GFR () 100.6 Estimated GFR (Non- 86.8 BUN/Creatinine Ratio 20.9 Random Glucose 91 mg/dl Calcium Level 8.3 mg/dl Magnesium Level 2.0 mg/dl Total Bilirubin 0.3 mg/dl Direct Bilirubin 0.1 mg/dl Aspartate Amino Transf (AST/SGOT) 36 U/L Alanine Aminotransferase (ALT/SGPT) 72 U/L Alkaline Phosphatase 86 U/L Troponin I < 0.015 ng/ml Total Protein 6.7 gm/dl Albumin 3.3 gm/dl Thyroid Stimulating Hormone (TSH) 0.632 uIu/ml D-Dimer 2090 ug/L FEU Test 11/20/16 19:20 11/21/16 07:20 Urine Color YELLOW Urine Appearance CLEAR Urine pH 6.5 Urine Specific [employer] 1.022 Urine Protein NEG Urine Glucose (UA) NEG Urine Ketones NEG Urine Occult Blood NEG Urine Nitrite NEG Urine Bilirubin NEG Urine Urobilinogen NEG Urine Leukocyte Esterase NEG White Blood Count 5.74 K/uL Red Blood Count 4.68 M/uL Hemoglobin 13.8 g/dL Hematocrit 40.5 % Mean Corpuscular Volume 86.5 fL Mean Corpuscular Hemoglobin 29.5 pg Mean Corpuscular Hemoglobin Concent 34.1 g/dl Platelet Count 267 K/uL Mean Platelet Volume 8.1 fL Neutrophils (%) (Auto) 57.0 % Lymphocytes (%) (Auto) 28.6 % Monocytes (%) (Auto) 11.1 % Eosinophils (%) (Auto) 2.4 % Basophils (%) (Auto) 0.7 % Neutrophils # (Auto) 3.27 K/uL Lymphocytes # (Auto) 1.64 K/uL Monocytes # (Auto) 0.64 K/uL Eosinophils # (Auto) 0.14 K/uL Basophils # (Auto) 0.04 K/uL RDW Standard Deviation 42.6 fL RDW Coefficient of Variation 13.4 % Immature Granulocyte % (Auto) 0.2 % Immature Granulocyte # (Auto) 0.01 K/uL Erythrocyte Sedimentation Rate 16 mm/hr Absolute Reticulocyte Count 0.06 10^6/uL Percent Reticulocyte Count 1.3 % Sodium Level 139 mmol/L Potassium Level 4.1 mmol/L Chloride Level 108 mmol/L Carbon Dioxide Level 26 mmol/L Anion Gap 5.0 mmol/L Blood Urea Nitrogen 15 mg/dl Creatinine 0.97 mg/dl Est Creatinine Clear Calc Drug Dose 93.0 ml/min Estimated GFR () 104.3 Estimated GFR (Non- 90.0 BUN/Creatinine Ratio 15.7 Random Glucose 83 mg/dl Calcium Level 8.9 mg/dl Iron Level 130 mcg/dl Total Iron Binding Capacity 371 mcg/dl Transferrin 300 mg/dl Transferrin % Saturation 31 % Ferritin 50.0 ng/ml Troponin I < 0.015 ng/ml Vitamin B12 Level 333 pg/mL Folate 9.19 ng/mL Patient Name: HOUSTON MAURICIO Unit Number: [id number] Dictated: 11/20/162143 Transcribed: 11/20/162143 JA Printed Date/Time: [~ rep prt dt]/[~ rep prt tm] [~ rep ct labl] - [~ rep ct ivnm] [facility] Radiology Department [place], [place] [id number] Dictated: 11/20/162143 Transcribed: 11/20/162143 JA Printed Date/Time: [~ rep prt dt]/[~ rep prt tm] [~ rep ct labl] - [~ rep ct ivnm] CT ANGIOGRAPHY OF THE CHEST, PULMONARY EMBOLUS PROTOCOL CLINICAL HISTORY: Shortness of breath. Elevated d-dimer. COMPARISON STUDY: Chest radiograph performed earlier today. TECHNIQUE: Following IV administration of 74 mL of Optiray-320, helical axial images of the chest were obtained utilizing the pulmonary embolus protocol. Maximal intensity projections and sagittal and coronal reformats were viewed on an independent 3D workstation. IV contrast was administered without complication. A dose lowering technique was utilized adhering to the principles of ALARA. CT DOSE: 362.46 mGy.cm FINDINGS: No pulmonary emboli are identified. There is no evidence of thoracic aortic dissection. The size of the heart is normal. There is no pericardial effusion. No enlarged axillary, mediastinal or hilar lymph nodes are present. Groundglass and linear opacities suggest atelectasis. There is no consolidation to suggest pneumonia. No pneumothorax or pleural effusion is present. Bony thorax is unremarkable. Gallbladder is surgically absent. Multifocal calcifications within the left adrenal gland are noted. This finding is benign. A 1 cm hypodense right hepatic lobe lesion is likely benign. This likely reflects a cyst. IMPRESSION: 1. No pulmonary emboli identified. 2. No acute intrathoracic findings. Electronically signed by: Varun Aguilar M.D. 11/20/2016 9:53 PM Dictated Date/Time: 11/20/2016 9:44 PM The status of this report is Signed. Draft = Not yet reviewed or approved by Radiologist. Signed = Reviewed and approved by Radiologist. <AttendingPhy></AttendingPhy> <FamilyPhy>No Doctor, Assigned</FamilyPhy> < PrimaryPhy>No Doctor, Assigned</PrimaryPhy> <UnitNumber>[id number]</UnitNumber> <VisitNumber>[id number]</VisitNumber> <PatientName>HOUSTON MAURICIO</PatientName> <DateOfBirth>1965</DateOfBirth> <Location>[facility]</Location> <ServiceDate></ServiceDate> <MNE>ESINDI</MNE> <OrderingPhy>Timbo Mariscal DO</ OrderingPhy> <OrderingPhyMNE>f rep ord dr álvarez</OrderingPhyMNE> <DictatingPhyMNE> f rep dict dr álvarez</DictatingPhyMNE> <CCListMNE>f rep ct mne</CCListMNE> < AdmittingPhyMNE>f pt admit dr álvarez</AdmittingPhyMNE> <AttendingPhyMNE>f pt attend dr álvarez</AttendingPhyMNE> <ConsultingPhyMNE>f pt consult dr álvarez</ConsultingPhyMNE> <FamilyPhyMNE>f pt fam dr álvarez</FamilyPhyMNE> <OtherPhyMNE>f pt other dr álvarez</OtherPhyMNE> < PrimaryPhyMNE>f pt prim care dr álvarez</PrimaryPhyMNE> <ReferringPhyMNE>f pt referring dr álvarez</ReferringPhyMNE> Assessment & Plan 51 year old male with Lyme carditis with (resolved) heart block on appropriate therapy with doxycycline. Suspect yesterday's symptoms were caused by overexertion soon after release from hospital rather than worsening Lyme. Feel that patient can be safely discharged on doxycycline. Advised patient to call his physician if symptoms recur as unlikely could be side effect from antibiotic.
--- NOTE | 2016-11-21 14:24 | Discharge Instructions ---
Discharge Instructions Date of Service Nov 21, 2016. Admission Reason for Admission: Lyme Carditis Discharge Discharge Diagnosis / Problem: Dyspnea associated with weakness, Lyme Carditis Discharge Goals Goal(s): Decrease discomfort, Improve function, Improve disease control Activity Recommendations Activity Limitations: resume your previous activity (as tolerated) . Instructions / Follow-Up Instructions / Follow-Up Discharge home Follow up with your primary care physician Follow up with cardiology tomorrow Complete doxycycline antibiotic Current Hospital Diet Patient's current hospital diet: AHA Diet (Heart Healthy) Discharge Diet Recommended Diet: AHA Diet (Heart Healthy) Pending Studies Studies pending at discharge: no Medical Emergencies . Who to Call and When: Medical Emergencies: If at any time you feel your situation is an emergency, please call 911 immediately. . Non-Emergent Contact Non-Emergency issues call your: Primary Care Provider, [employer] Call Non-Emergent contact if: you have any medication questions . . "Provider Documentation" section prepared by Boris Wylie. . VTE Core Measure Inpt VTE Proph given/why not?: SCD's
[2016-11-21] MEDS ORDERED: CEFTRIAXONE SOD INJ 2 GM in DEXTROSE 5% ADD-VANTAGE 50ML 50 ML IV SCH (23:00)
--- NOTE | 2016-11-26 14:11 | Discharge Summary ---
Discharge Summary Date of Service Nov 26, 2016. Discharge Summary Admission Date: Nov 20, 2016 at 23:24 Discharge Date: Nov 21, 2016 Discharge Disposition: Home Principal Diagnosis: Dyspnea associated with weakness Secondary Diagnoses/Problems: Lyme Carditis Normocytic anemia Procedures: Interpretation Summary * Name: HOUSTON MAURICIO Study Date: 11/21/2016 06:58 AM BP: 123/78 mmHg * Patient Location: [facility]\\S\\N282\\S\\2 HR: 80 * : 1965 (M/d/yyyy) Gender: Male Height: 70 in * Age: 51 yrs Ethnicity: [place] Weight: 188 lb * Ordering Physician: Levi Martinez * Performed By: Kendy Bearden * * Reason For Study: SOB, HX OF LYME CARDITIS * BSA: 2.0 m2 * The study was technically adequate. * There is no comparison study available. * -- Conclusions -- * Ejection Fraction = 65-70%. * The left ventricular wall motion is normal. * Pulse wave TDI of the anterior and posterior mitral annulas demonstrates normal LV relaxation * There is no pericardial effusion. Procedure Details * A complete two-dimensional transthoracic echocardiogram was performed (2D, M- mode, Doppler and color flow Doppler). Left Ventricle * The left ventricle is normal in size. * There is normal left ventricular wall thickness. * Ejection Fraction = 65-70%. * Left ventricular systolic function is normal. * The left ventricular wall motion is normal. Right Ventricle * The right ventricle is normal size. * The right ventricular systolic function is normal as assessed by tricuspid annular plane systolic excursion (TAPSE) (normal >1.5 cm). Atria * The left atrial size is normal. * Right atrial size is normal. * There is no evidence of atrial septal defect, but resolution does not allow assessment for a patent foramen ovale. Mitral Valve * The chordae are redundant with focal calcification. * There is no mitral valve stenosis. * Significant mitral regurgitation is absent. Tricuspid Valve * The tricuspid valve is normal. * There is no tricuspid stenosis. * Significant tricuspid regurgitation is absent. Aortic Valve * The aortic valve is trileaflet. * Aortic stenosis is absent. * There is no significant aortic regurgitation. Pulmonic Valve * The pulmonary valve is not well seen, but the Doppler examination is normal without significant regurgitation or stenosis. Great Vessels * The aortic root is normal size. Pericardium/Pleural * There is no pericardial effusion. Great Vessels * Normal inferior vena cava diameter and respiratory variation suggests normal central venous pressure. Left Ventricular Diastolic Function * Pulse wave TDI of the anterior and posterior mitral annulas demonstrates normal LV relaxation Consultations: Cardio ID Medication Reconciliation Continued Medications: Lmkuxdy-Thocjilnhwfdw-Wxxklqzk (Excedrin Extra Strength) 1 Tab Tab 2 TABS PO PRN UD Colestipol Hcl (Colestid) 1 Gm Tab 3 TABS PO QAM, TAB Ibuprofen (Advil) 200 Mg Tab 400 MG PO Q6 PRN for Pain, TAB [Doxycycline] () 1 TABS PO BID for LYMES DISEASE Admission Information HPI (per Admitting provider): CHIEF COMPLAINT: Shortness of breath. HISTORY OF PRESENT ILLNESS: History obtained from patient and ER provider. Medical history significant for recent diagnosis of Lyme carditis ongoing doxycycline treatment. Recent confinement at [place] last week for Lyme carditis. Prior to confinement patient had 2 days history of shortness of breath, generalized weakness weakness, subsequently had 2 syncopal events. Complete heart block noted at [facility]. Temporary pacemaker placed. Abnormal Lyme screen noted. No recollection of recent tick bites. Patient was started IV Ceftriaxone for possible Lyme carditis subsequently discharged on Doxycycline course about 2 days ago. Patient compliant with medications. Patient and in town to bring son to college. He noted shortness of breath, generalized weakness similar to carditis sx from last week. No chest pain. Transient bilateral upper extremity numbness and tingling. Patient denies depression. No abdominal pain/bleeding noted. At the Emergency Room, patient given Ceftriaxone. Physical Exam (per Admitting): VITAL SIGNS: Blood pressure was noted to be 138/80, pulse rate 86, RR 17, temperature 36.4, sats 100% in room air. GENERAL: Slightly anxious, no respiratory distress. SKIN: pallor. HEENT: Partial alopecia, pale palpebral conjunctivae, dry buccal mucosa NECK: No JVD. Supple. CHEST: Clear to auscultation. HEART: Regular rate and rhythm. ABDOMEN: Soft. NT EXTREMITIES: No edema. No tenderness NEUROLOGIC: No gross focality. Hospital Course SOB associated with weakness Pt said symptoms are similar to his 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 Janna BRIAN from cardiac standpoint to discharge home as per cardiology ECHO showed * Ejection Fraction = 65-70%. * The left ventricular wall motion is normal. * Pulse wave TDI of the anterior and posterior mitral annulas demonstrates normal LV relaxation * There is no pericardial effusion. 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 as per patient Initially treated with IV Ceftriaxone at the [facility] Rocephin 2g given in the ER On rocephin daily Will discharge back on doxycycline ID consulted recommended to continue doxycycline Normocytic anemia unknown baseline because he follows with PCP in [place] Hbg 13.8 DVT px on SCDs CODE STATUS FULL CODE Disposition Possible discharge home today if stable from cardio standpoint Follow up appointment tomorrow with his cardiology in [place] Follow up with PCP in [place] Total time spent on discharge = 35 minutes This includes examination of the patient, discharge planning, medication reconciliation, and communication with other providers. Discharge Instructions Discharge Instructions Date of Service Nov 21, 2016. Admission Reason for Admission: Lyme Carditis Discharge Discharge Diagnosis / Problem: Dyspnea associated with weakness, Lyme Carditis Discharge Goals Goal(s): Decrease discomfort, Improve function, Improve disease control Activity Recommendations Activity Limitations: resume your previous activity (as tolerated) . Instructions / Follow-Up Instructions / Follow-Up Discharge home Follow up with your primary care physician Follow up with cardiology tomorrow Complete doxycycline antibiotic Current Hospital Diet Patient's current hospital diet: AHA Diet (Heart Healthy) Discharge Diet Recommended Diet: AHA Diet (Heart Healthy) Pending Studies Studies pending at discharge: no Medical Emergencies . Who to Call and When: Medical Emergencies: If at any time you feel your situation is an emergency, please call 911 immediately. . Non-Emergent Contact Non-Emergency issues call your: Primary Care Provider, Pediatric Np Call Non-Emergent contact if: you have any medication questions . . "Provider Documentation" section prepared by Boris Wylie. . VTE Core Measure Inpt VTE Proph given/why not?: SCD's
== END 2016-11-21 14:55 | disposition home or self-care (01) | DRG 869 ==
LOC: C.EDC 17:55 → C.MED 23:24 → ENRESERV 23:41
PROVIDERS: ADMIT Internal Medicine; ATTEND Internal Medicine
DX: A69.29 Other conditions associated with Lyme disease (principal); I51.89 Other ill-defined heart diseases; I44.0 Atrioventricular block, first degree; D64.9 Anemia, unspecified; Z79.899 Other long term (current) drug therapy